=== PATIENT | male | born 1970 | race Caucasian/White ===

== ENCOUNTER 2017-06-19 09:56 | Day surgery (SDC) | payer OTHER ==
[~2017-06-19 09:56] MED LIST: CEFAZOLIN 2 GM/50 ML (PMX) 50 ML IVPB; SOD CHLORIDE 0.9% 1,000 ML IV
[2017-06-19] MEDS ORDERED: FENTAnyl 50 MCG/ML VIAL (12:23)
[2017-06-19] MEDS ORDERED: ROCURONIUM 50 MG INJ (12:45)
[2017-06-19] MEDS ORDERED: CEFAZOLIN 1 GM INJ (12:45)
[2017-06-19] MEDS ORDERED: LIDOCAINE 100 MG SYRINGE (12:45)
[2017-06-19] MEDS ORDERED: SUCCINYLCHOLINE CHLORIDE 100 MG/5 ML SYG IV (12:45)
[2017-06-19] MEDS ORDERED: SUGAMMADEX SODIUM 200 MG/2 ML VIAL IV (12:45)
[2017-06-19] MEDS ORDERED: PROPOFOL 40 ML (12:45)
[2017-06-19] MEDS: BUPIVACAINE 0.25% (MPF) 30 ML INJ (12:47)
[2017-06-19] MEDS ORDERED: METOCLOPRAMIDE 10 MG INJ IV (13:00)
[2017-06-19] MEDS ORDERED: HYDROmorphONE (0.2 MG/ML) 10ML SYG IV ×3 (13:00)
[2017-06-19] MEDS ORDERED: ONDANSETRON 4 MG INJ IV (13:00)
[2017-06-19] MEDS ORDERED: DIPHENHYDRAMINE 50 MG INJ IV (13:00)
[2017-06-19] MEDS ORDERED: FENTAnyl 50 MCG/ML VIAL IV ×3 (13:00)
[2017-06-19] MEDS ORDERED: MEPERIDINE 25 MG INJ IV (13:00)
[2017-06-19] MEDS ORDERED: HYDROCODONE/APAP (5/325) TAB PO (13:30)
== END 2017-06-19 14:14 | disposition home or self-care (01) ==
LOC: SDS 09:56
DX: L05.91 Pilonidal cyst without abscess (principal); E11.9 Type 2 diabetes mellitus without complications; E78.5 Hyperlipidemia, unspecified; I10 Essential (primary) hypertension; E66.01 Morbid (severe) obesity due to excess calories; Z68.35 Body mass index [BMI] 35.0-35.9, adult; Z86.73 Personal history of transient ischemic attack (TIA), and cerebral infarction without residual deficits
CPT/HCPCS: 11772; 82962; 88304